=== PATIENT | male | born 1980 | race Two or more races ===

== ENCOUNTER 2018-05-29 07:15 | Emergency (ER) | payer OTHER ==
[~2018-05-29] VITALS: Ht 172.7 cm; Wt 125.0 kg
--- NOTE | 2018-05-29 07:44 | NUR ---
PT TO RADIOLOGY.
[2018-05-29] MEDS ORDERED: SODIUM CHLORIDE FLUSH 10ML SYR IVF ONE (09:00)
--- NOTE | 2018-05-29 09:08 | NUR ---
IV STARTED, PT UPDATED ON POC. UNDERSTANDING VERBALIZED. NO NEEDS EXPRESSED AT THIS TIME.
[2018-05-29] MEDS ORDERED: OMNIPAQUE 350 MG/ML, 100ML BOTTLE ONE (09:37)
[2018-05-29] MEDS ORDERED: DEXAMETHASONE 4 MG TABLET ONE (10:15)
--- NOTE | 2018-05-29 10:20 | NUR ---
PT MEDICATED ORDERED. IV DC'D WITH CANNULA INTACT. PT AMB TO BR, GAIT STEADY.
[2018-05-29 10:28] VITALS: BP 151/97
[2018-05-29] MEDS ORDERED: DEXAMETHASONE 4 MG TABLET PO ONE (10:30)
== END 2018-05-29 10:30 | disposition home or self-care (01) ==
LOC: ED 08:00
DX: J02.8 Acute pharyngitis due to other specified organisms (principal); I10 Essential (primary) hypertension
CPT/HCPCS: 70360; 70491; 87081; 87880; 99284; Q9967